=== PATIENT | male | born 1975 | race Two or more races ===

== ENCOUNTER 2017-07-09 00:56 | Emergency (ER) | payer SELFPAY ==
[~2017-07-09] VITALS: Ht 180.3 cm; Wt 99.8 kg
[2017-07-09 04:20] VITALS: BP 175/104
== END 2017-07-09 04:20 | disposition home or self-care (01) ==
LOC: ED 00:56
DX: S01.511A Laceration without foreign body of lip, initial encounter (principal); Y04.2XXA Assault by strike against or bumped into by another person, initial encounter; Y93.89 Activity, other specified; Y92.092 Bedroom in other non-institutional residence as the place of occurrence of the external cause; Y99.8 Other external cause status
CPT/HCPCS: 90715; J2001

== ENCOUNTER 2018-10-20 17:42 | Emergency (ER) | payer MEDICAID ==
[~2018-10-20] VITALS: Ht 180.3 cm; Wt 102.1 kg
[2018-10-20 18:46] VITALS: Ht 180.3 cm; Wt 102.1 kg
[2018-10-20 20:50] LABS: CALCIUM 8.7 mg/dL (8.5-10.1); CARBON DIOXIDE 25.5 mmol/L (21-32); CHLORIDE SERUM 104 mmol/L (98-107); GFR1 > 60 mL/min; GLUCOSE SERUM 121 mg/dL (74-106); POTASSIUM SERUM 3.6 mmol/L (3.5-5.1); SODIUM SERUM 139 mmol/L (136-145)
[2018-10-20 20:55] LABS: ALBUMIN 3.9 g/dL (3.4-5.0); ALKALINE PHOSPHATASE 57 U/L (46-116); ALT/SGPT 35 U/L (16-63); AST/SGOT 17 U/L (15-37); BASOPHIL % 0.2 % (0-2); BILIRUBIN TOTAL 0.97 mg/dL (0.20-1.00); PLATELET COUNT 357 x10^3mcL (130-400); RED CELL DISTRIBUTION WIDTH 13.1 % (11.5-14.5); TOTAL PROTEIN, SERUM 8.2 g/dL (6.4-8.2)
[2018-10-21 00:06] LABS: SITE FLUID LEFT; SOURCE FLUID SYNOVIAL FLUID
[2018-10-21 00:07] LABS: APPEARANCE FLUID HAZY; COLOR FLUID YELLOW; WBC FLUID 16915 /cumm
[2018-10-21 00:08] LABS: LYMPHOCYTE FLUID 5 %; RBC FLUID 198 /cumm
[2018-10-21 01:32] VITALS: BP 154/97
== END 2018-10-21 01:32 | disposition home or self-care (01) ==
LOC: ED 17:42
PROVIDERS: Emergency Medicine
DX: M25.462 Effusion, left knee (principal); I10 Essential (primary) hypertension
CPT/HCPCS: 36415; J1885; J2001; Q0092; Q0162